=== PATIENT | male | born 1990 | race Caucasian/White ===

== ENCOUNTER 2017-10-15 20:35 | Emergency (ER) | payer BC, SELFPAY ==
[2017-10-15 20:37] VITALS: BP 177/92; PULSE 90; RESP 18; TEMP 37.3; O2SAT 96; BMI 30.3
--- NOTE | 2017-10-15 20:50 | ED.VISSUMM ---
- ER Visit Summary Date of Service: 10/15/17 Chief Complaint: Right knee and leg pain History of Present Illness: The patient is a 27 M who has right knee and leg pain. He states he was at a concert yesterday when somebody fell onto his right leg. He states he has pain with ambulation. Is worse in the lateral part of the right knee. He denies any previous injuries to the knee. He took nothing for it at home. Physical Examination: Vital signs are reviewed. Right knee exam reveals tenderness over the lateral portion. He does have pain with valgus and varus stress. Negative anterior and posterior drawer test. He has painful range of motion. He has 2+ distal pulses. Test Results: Right knee x-ray reveals no bony injury. There is a question about a ligamentous or tendon injury per radiologist Emergency Department Course and Treatment: Patient was given [place] here. He was relayed the findings of the x-ray. Patient will be discharged with naproxen for pain. He will be given crutches. He will be given orthopedic follow-up. His pain persist he may need an MRI. Treatment Plan: [] Disposition: Discharge Impression: Right knee sprain This note was generated with [employer] dictation software. It may contain incorrect words, spelling, and punctuation that were not noted in review of the chart prior to signing ED Disposition - Plan for ED Patient: Chief Complaint: Lower Extremity Injury Referrals: Care Physician,No Primary [Primary Care Provider] -
[2017-10-15] MEDS: HYDROcodone Bitartrate/Apap 5/325 Tablet PO ×2 (21:00→22:02)
--- NOTE | 2017-10-15 21:39 | ED.DEP ---
ED Disposition - Plan for ED Patient: Disposition: Home or Assisted Living Chief Complaint: Lower Extremity Injury Instructions: ED Knee Pain [facility] Prescriptions: Naproxen [Naprosyn] 500 mg PO BID PRN #20 tab Referrals: Dieter Nevarez MD [STAFF PHYSICIAN] -
== END 2017-10-15 22:03 | disposition home or self-care (01) ==
PROVIDERS: Emergency Provider Emergency Medicine
DX: S83.91XA Sprain of unspecified site of right knee, initial encounter (principal); W50.0XXA Accidental hit or strike by another person, initial encounter; Y93.9 Activity, unspecified; Y92.9 Unspecified place or not applicable; Z72.0 Tobacco use
CPT/HCPCS: 73562; 99284

== ENCOUNTER 2019-05-08 17:24 | Emergency (ER) | payer BC, SELFPAY ==
[2019-05-08 17:25] VITALS: BP 156/95; PULSE 86; RESP 17; TEMP 37.4; O2SAT 95; BMI 27.7
--- NOTE | 2019-05-08 17:42 | CT_ITS ---
STUDY: CT ABDOMEN AND PELVIS WITHOUT CONTRAST REASON FOR EXAM: Male, 29 years old. BILAT FLANK PAIN and groin pain RADIATION DOSAGE (If Supplied By Facility): CTDIvol = ( 9.84 ) mGy, DLP = ( 531.26 ) mGycm TECHNIQUE: Transaxial images were obtained from the dome of the diaphragm to the symphysis pubis without oral contrast, and without intravenous contrast. Sagittal and coronal images were reconstructed. Individualized dose optimization techniques were used for this CT. COMPARISON: None. FINDINGS: The visualized lung bases are unremarkable. Normal liver. No intrahepatic biliary duct dilatation or liver mass. Normal gallbladder and extrahepatic biliary system. Normal spleen. Normal pancreas. Normal bilateral adrenal glands. Normal right kidney. Normal left kidney. No hydronephrosis or renal masses. No large stones. Normal visualized stomach. Normal small intestine. Normal colon. No bowel dilatation or obstruction. No free air or free fluid. The appendix is visualized and appears normal. Normal abdominal aorta. Normal inferior vena cava. Normal retroperitoneum. Normal urinary bladder. Normal abdominal wall. Normal osseous structures. CT/Abdomen/Pelvis without Cont IMPRESSION: No demonstrated acute or significant process of the abdomen and pelvis. Electronically Signed: Peterson Keenan MD at 18:43 EDT , Service support ,
[2019-05-08] MEDS: 0.9% Normal Saline 1,000 ML 1000 ML IV (17:56)
[2019-05-08 18:17] LABS: Absolute Lymphocyte Count 4.09 X10^3/uL (0.83-4.51); Absolute Neutrophil Count 5.9 X10^3/uL (2.0-7.7); Basophil# 0.05 X10^3/uL; Basophil% 0.4 % (0-1); Eosinophils% 1.7 % (0-5); Hematocrit 42.5 % (40-54); Hemoglobin 14.6 g/dL (13.0-16.5); Lymphocyte # 4.09 X10^3/ul (4.0); Lymphocyte % 35.4 % (19-41); Mean Corp Hgb Conc 34.4 g/dL (32-36); Mean Corpuscular Volume 87.3 fL (80-94); Mean Platelet Vol. 9.5 fl (6.2-12.0); Monocyte# 1.21 X10^3/uL; Monocyte% 10.5 % (0-10); NRBC Flagged by Analyzer 0 % (0-5); Neutrophil # 5.94 X10^3/uL (2.7-7.7); Neutrophil % 51.5 % (47-70); Platelet Count 421 K/mm3 (150-450); RBC Distribution Width CV 11.4 % (11.6-14.6); RBC Distribution Width SD 36.3 fl (35.1-43.9); Red Blood Count 4.87 M/mm3 (4.6-6.2); White Blood Count 11.6 K/mm3 (4.4-11.0)
[2019-05-08 18:40] LABS: ALB/GLOB Ratio 1.4 RATIO (0.9-2.4); AST(SGOT) 18 U/L (15-37); Alanine Aminotransfer ALT/SGPT 32 U/L (16-61); Albumin, Serum 4.5 g/dL (3.2-5.0); Alkaline Phosphatase 61 U/L (45-117); Anion Gap 8 (5-15); BUN 12 mg/dL (7-18); BUN/Creat Ratio 15.2 RATIO (10-20); Calcium,Total 9.6 mg/dL (8.5-10.1); Chloride 104 mmol/L (98-107); Creatinine, Serum 0.79 mg/dL (0.70-1.30); EST Glomerular Filtration Rate 123 mL/min (>60); Est Glom Filt Rate - Afr Amer 149 mL/min (>60); Estimated Creatinine Clearance 155.92 ml/min; Globulin 3.3 g/dL (2.2-4.2); Glucose 81 mg/dL (74-106); Lipase 110 U/L (73-393); Potassium 3.6 mmol/L (3.5-5.1); Protein, Total 7.8 g/dL (6.4-8.2); Sodium Level 140 mmol/L (136-145)
[2019-05-08 19:10] LABS: Color, Urine Yellow (Yellow); Glucose, Dipstick Normal (Normal); Ketone-Dipstick 5 mg/dl (Negative); Leukocyte Esterase-Dipstick Negative /ul (Negative); Mucous, Urine 0 SEEN /hpf (<or=2+); Nitrite-Dipstick Negative (Negative); Occult Blood-Urine Negative /ul (Negative); Protein-Dipstick 15 mg/dl (Negative); Red Blood Cells-Urine 0 SEEN /hpf (0-5); Specific Gravity, Urine 1.025 (1.002-1.030); Squamous Epithelial Cells - UA 0 SEEN /hpf (0-5); Urine Bilirubin Dipstick Negative (Negative); Urine Clarity Clear (Clear); Urine Urobilinogen Normal (Normal); White Blood Cells 0 SEEN /hpf (0-5)
[2019-05-08 19:17] LABS: Bacteria RARE /hpf (None Seen)
--- NOTE | 2019-05-08 19:20 | ED.VISSUMM ---
- ER Visit Summary Date of Service: 05/08/19 Chief Complaint: Abdominal pain History of Present Illness: The patient is a 29 M with abdominal pain for several months. The pain seems to be in his bilateral flanks. But he does have pain into his testicles at times. No masses. No other symptoms. He reports constipation but no other GI symptoms. No fevers. Physical Examination: Afebrile and vital signs unremarkable. Skin is normal in color without jaundice or pallor. Heart regular. Lungs clear. Abdomen soft and nontender. Back and flanks are mildly tender. Skin appears normal. Test Results: CBC showed a white count 11.6. CMP and lipase normal. Urinalysis normal. CT abdomen and pelvis normal. Emergency Department Course and Treatment: Patient's work-up was unremarkable. I have nothing to explain his bilateral flank pain and other GI symptoms. Patient is referred for outpatient follow-up with primary care. Return for any new or worsening issues. Treatment Plan: As above Disposition: Discharge Impression: Abdominal pain This note was generated with [employer] dictation software. It may contain incorrect words, spelling, and punctuation that were not noted in review of the chart prior to signing ED Disposition - Plan for ED Patient: Referrals: Care Physician,No Primary [Primary Care Provider] -
--- NOTE | 2019-05-08 19:26 | ED.DEP ---
ED Disposition - Plan for ED Patient: Instructions: ED Unknown Causes of Abdominal Pain Male Referrals: Luly Joshua [NON-STAFF] -
[2019-05-08 19:37] VITALS: BP 157/90; PULSE 85; RESP 18; O2SAT 96
== END 2019-05-08 19:37 | disposition home or self-care (01) ==
LOC: ED 18:19
PROVIDERS: Emergency Provider Emergency Medicine
DX: R10.9 Unspecified abdominal pain (principal); K59.00 Constipation, unspecified; Z87.891 Personal history of nicotine dependence
CPT/HCPCS: 74176; 80053; 81001; 83690; 85025; 96360; 99284; J7030

== ENCOUNTER → 2019-05-20 15:14 | Outpatient (CLI) | payer BC, SELFPAY ==
[2019-05-08 17:25] VITALS: BMI 27.7
[2019-05-20 17:35] LABS: Thyroid Stim Hormone (TSH) 1.54 uIU/mL (0.358-3.74)
== END ==
PROVIDERS: PCP Family Medicine; Referring Provider Family Medicine; Visit Provider Family Medicine
DX: K59.00 Constipation, unspecified (principal)
CPT/HCPCS: 36415; 84443

== ENCOUNTER → 2019-07-01 15:03 | Outpatient (CLI) | payer BC, SELFPAY ==
[2019-07-05 03:07] LABS: Alternaria alternata <0.10 kU/L (Class 0); Aspergillus fumigatus <0.10 kU/L (Class 0); Bahia Grass <0.10 kU/L (Class 0); Beef <0.10 kU/L (Class 0); Bermuda Grass <0.10 kU/L (Class 0); Bluegrass, Kentucky <0.10 kU/L (Class 0); Cat Hair/Dander, Standard <0.10 kU/L (Class 0); Cedar, Mountain <0.10 kU/L (Class 0); Cladosporium herbarum <0.10 kU/L (Class 0); Cockroach, American <0.10 kU/L (Class 0); Corn <0.10 kU/L (Class 0); D farinae Mite 3.47 kU/L (Class III); D pteronyssinus 2.66 kU/L (Class III); Dog Epithelia <0.10 kU/L (Class 0); Egg, Whole <0.10 kU/L (Class 0); Elm, American White <0.10 kU/L (Class 0); Hazelnut Tree <0.10 kU/L (Class 0); Hickory, White <0.10 kU/L (Class 0); Johnson Grass <0.10 kU/L (Class 0); Maple/Box Elder <0.10 kU/L (Class 0); Milk (Cow) <0.10 kU/L (Class 0); Mucor racemosus <0.10 kU/L (Class 0); Mugwort <0.10 kU/L (Class 0); Mulberry, White <0.10 kU/L (Class 0); Nettle <0.10 kU/L (Class 0); Oak, White <0.10 kU/L (Class 0); Peanut <0.10 kU/L (Class 0); Penicillium chrysogen <0.10 kU/L (Class 0); Pigweed, Rough <0.10 kU/L (Class 0); Plantain, English <0.10 kU/L (Class 0); Pork <0.10 kU/L (Class 0); Sheep Sorrel(Dock) <0.10 kU/L (Class 0); Soybean <0.10 kU/L (Class 0); Stemphylium herbarum <0.10 kU/L (Class 0); Sweet Gum <0.10 kU/L (Class 0); Sycamore, American <0.10 kU/L (Class 0); Wheat <0.10 kU/L (Class 0)
[2019-07-06 01:10] LABS: Chocolate <0.10 kU/L (Class 0)
== END ==
PROVIDERS: PCP Family Medicine; Visit Provider Family Medicine
DX: J30.9 Allergic rhinitis, unspecified (principal)
CPT/HCPCS: 36415; 86003; 86005